=== PATIENT | male | born 1970 | race Caucasian/White ===

== ENCOUNTER 2021-11-09 12:20 | Emergency (ER) | payer BC, OTHER ==
[~2021-11-09] VITALS: Ht 167.6 cm; Wt 81.2 kg
[~2021-11-09 12:20] MED LIST: CEPH-570; SULF1TAB48
[2021-11-09] MEDS ORDERED: LEVETIRACETAM (500MG) 500 MG in IV NS 0.9% 100 ML IV ONE (12:30)
--- NOTE | 2021-11-09 12:32 | NUR ---
TO ER BED 9, [id number] SEIZURE, WITNESSED BY . BG 157, HX OF SEIZURE PER PATIENT, DENIES ANY PAIN, AAOX3, BREATHING EVEN AND NON LABORED, CONNECTED TO MONITOR, AWAITING MD ORDERS
--- NOTE | 2021-11-09 12:40 | NUR ---
SALINE LOCK ESTABLISHED, BLOOD DRAWN AND PICKED UP BY LAB
--- NOTE | 2021-11-09 12:45 | NUR ---
TAKEN TO CT
--- NOTE | 2021-11-09 13:17 | NUR ---
SCOTTIE MCELROY NUMBER [phone]
[2021-11-09 13:45] LABS: BASOPHILS % (AUTO) 0.5 % (0.0-2.0); EOSINOPHILS % (AUTO) 0.7 % (0.0-6.0); HEMATOCRIT 41 % (39-51); HEMOGLOBIN 13.7 g/dL (13.5-17.5); LYMPHOCYTES # (AUTO) 2.5 K/uL (0.8-4.8); LYMPHOCYTES % (AUTO) 33.8 % (20.0-44.0); MEAN CORPUSCULAR HGB CONC 34 g/dl (31.0-36.0); MEAN CORPUSCULAR VOLUME 86 fL (80-96); MONOCYTES # (AUTO) 0.5 K/uL (0.1-1.30); MONOCYTES % (AUTO) 6.7 % (2.0-12.0); NEUTROPHILS # (AUTO) 4.3 K/uL (1.8-8.9); NEUTROPHILS % (AUTO) 58.3 % (43.0-81.0); PLATELET COUNT (AUTO) 308 K/uL (150-450); RED BLOOD CELL COUNT(AUTO) 4.72 MIL/uL (4.5-6.0); WHITE BLOOD COUNT (AUTO) 7.4 K/uL (4.3-11.0)
[2021-11-09] MEDS ORDERED: DEXAMETHASONE 1 MG TABLET PO ONE (14:00)
[2021-11-09] MEDS ORDERED: DEXAMETHASONE 1 MG TABLET ONE (14:05)
[2021-11-09 17:39] LABS: ALBUMIN 3.2 g/dL (3.4-5.0); BILIRUBIN,DIRECT 0.1 mg/dL (0.0-0.2); BILIRUBIN,TOTAL 0.5 mg/dL (0.2-1.0); CALCIUM, SERUM 9.7 mg/dL (8.5-10.1); CREATININE 0.6 mg/dL (0.6-1.3); POTASSIUM 4.1 mmol/L (3.5-5.1); TOTAL PROTEIN, SERUM 6.9 g/dL (6.4-8.2)
--- NOTE | 2021-11-09 19:00 | NUR ---
IV removed. Catheter intact and site benign. Pressure and 4x4 applied to site. No bleeding noted.Patient discharged to home in stable condition. Written and verbal after care instructions given. Patient verbalizes understanding of instruction.
[2021-11-09 19:04] VITALS: BP 135/91
== END 2021-11-09 19:19 | disposition home or self-care (01) ==
LOC: ER 12:27
DX: G40.909 Epilepsy, unspecified, not intractable, without status epilepticus (principal); G93.9 Disorder of brain, unspecified; F17.200 Nicotine dependence, unspecified, uncomplicated
CPT/HCPCS: 36415; 70450; 71045; 80048; 80076; 85025; 96365; 99285; J1953; J7030; J8540